=== PATIENT | female | born 1970 | race Hispanic/Latino ===

== ENCOUNTER 2017-06-25 11:53 | Emergency (ER) | payer BC ==
[2017-06-25 12:32] LABS: #Eosinphils 0.1 thou/uL (0.0-0.7); #Monocytes 0.8 thou/uL (0.11-0.59); #Neutrophils 12.4 thou/uL (1.40-6.50); %Basophils 0.3 % (0.0-1.0); %Eosinophils 0.5 % (0.0-10.0); %Lymphocytes 7.1 % (21.0-51.0); %Monocytes 5.8 % (0.0-10.0); Hematocrit 43.7 % (36.0-47.0); Red Blood Cell (RBC) Count 4.71 mill/uL (4.20-5.40); White Blood Cell (WBC) Count 14.3 thou/uL (4.8-10.8)
[2017-06-25 12:37] LABS: Bilirubin Negative (Negative); Blood, Urine Trace (Negative); Glucose, Urine (Dipstick) Negative (Negative); Ketone, Urine 15 mg/dL (Negative); Nitrite Negative (Negative); Protein, Urine (Dipstick) Negative (Neg-Trace); Urobilinogen 0.2 mg/dL (0.2-1.0)
[2017-06-25 12:40] LABS: Bacteria/HPF None Seen HPF (None Seen); Hyaline Casts/LPF 0-3 HYALINE CAST LPF (0-3 Hyaline); Squamous Epithelial 0-3 HPF (0-3); WBC/HPF 0-3 HPF (0-3)
[2017-06-25 12:55] LABS: ALT (SGPT) 21 U/L (8-55); AST (SGOT) 20 U/L (5-34); Alkaline Phosphatase 97 U/L (40-150); Anion Gap 13 mmol/L (10-20); BUN (Urea Nitrogen) 19 mg/dL (7.0-18.7); Bilirubin, Total 0.6 mg/dL (0.2-1.2); Calc. Creatinine Clearance 0 mL/min (70-130); Calcium 9.2 mg/dL (7.8-10.44); Carbon Dioxide 26 mmol/L (22-29); Chloride 103 mmol/L (98-107); Estimated GFR-MDRD 90; Globulin 3.6 g/dL (2.4-3.5); Lipase 20 U/L (8-78); Protein, Total 8.1 g/dL (6.0-8.3)
[2017-06-25] MEDS ORDERED: Ondansetron HCl/PF 4 MG/2 ML Vial ONE ×2 (13:16→15:28)
[2017-06-25] MEDS ORDERED: Morphine 4 MG/ML VIAL ONE (13:16)
[2017-06-25] MEDS ORDERED: Iopamidol 370 76% 50 ML VIAL FS ONE (16:47)
[2017-06-25] MEDS ORDERED: ISOVUE-370 76%-LOCM 1 ML ONE (16:47)
--- NOTE | 2017-06-25 17:22 | CT ---
CT ABDOMEN AND PELVIS WITH IV AND ORAL CONTRAST: History: Left abdomen pain. FINDINGS: Minimal atelectasis is present at the lung bases. The liver, spleen, kidneys, adrenal glands, and sanon creas have a normal CT appearance. Bilateral pars intraarticularis defects are apparent at the lumbos acral junction. Urinary bladder is decompressed. Minimal nonspecific free fluid is present within the pelvis. There is heterogeneity of the uterus. Retroaortic left renal vein is noted. No colon inflamm ation is reliably demonstrated. IMPRESSION: Minimal free pelvic fluid. No significant abnormalities are demonstrated. POS: H
[2017-06-25] MEDS ORDERED: Acetaminophen 500 MG TAB ONE (17:28)
== END 2017-06-25 17:30 | disposition home or self-care (01) ==
LOC: ERS 11:53
DX: R11.2 Nausea with vomiting, unspecified (principal); R19.7 Diarrhea, unspecified; R10.32 Left lower quadrant pain
CPT/HCPCS: 74177; 80053; 81003; 81015; 81025; 83690; 85025; 96361; 96374; 96375; 96376; J2270; J2405